=== PATIENT | female | born 1940 | race Caucasian/White ===

== ENCOUNTER 2018-04-14 00:15 | Day surgery (SDC) | payer MEDICARE, OTHER ==
[~2018-04-14] VITALS: Ht 154.9 cm; Wt 100.7 kg
[~2018-04-14 00:15] MED LIST: ALEN10TA PO; AUG875 PO; CA C1TAB11 PO; CHOL10005 PO; FLUC150T40 PO; FURO-45 PO; HCTZ25 PO; LEV125 PO; MAX75 PO; MET500 PO; METF-450 PO; MULT-36; MULT1TAB67 PO; POTA25TA28 PO; THY60 PO; [UNRECOGNIZED DRUG - CODE] PO
[2018-04-14] MEDS ORDERED: NORMOSOL R SOLN(*) 1000 ML BAG 1,000 ML IV PRN (11:50)
[2018-04-14] MEDS ORDERED: LIDOCAINE/SOD BICARB 8.4% SYR ID ONE (11:50)
[2018-04-14 13:09] VITALS: BP 107/75
[2018-04-14] MEDS ORDERED: DEXTROSE 50% 50 ML SYR IVP ONE (13:20)
[2018-04-14 15:31] VITALS: BP 127/74
[2018-04-14 15:33] VITALS: BP 134/75
== END 2018-04-14 15:25 | disposition home or self-care (01) ==
LOC: OR 00:15
PROVIDERS: ATTEND Internal Medicine Gastroenterology
DX: Z12.11 Encounter for screening for malignant neoplasm of colon (principal); K64.8 Other hemorrhoids; K57.30 Diverticulosis of large intestine without perforation or abscess without bleeding; E11.9 Type 2 diabetes mellitus without complications
CPT/HCPCS: 00812; 36416; 82948; G0121